=== PATIENT | female | born 1960 | race Caucasian/White ===

== ENCOUNTER → 2022-03-12 | Outpatient (CLI) | payer MEDICARE ==
--- NOTE | 2022-03-12 12:06 | Diagnostic Imaging Report ---
INDICATION: Bilateral knee pain TECHNIQUE: [place], lateral AP and PA views of the bilateral knee CORRELATION STUDY: None FINDINGS: Right knee: There is moderate joint space narrowing of medial joint space lateral compartment. Marginal osteophyte formation is noted. The articular surfaces appear smooth and maintained. There is narrowing at the patellofemoral compartment with prominent osteophyte formation anterior femur as well as superior and inferior pole of patella . Left knee: There is markedly advanced essentially complete absence of joint space medial joint space lateral compartment of the left knee. Essentially [id number] is noted medially. Prominent marginal osteophyte formation is noted laterally. There is a lateral subluxation of the tibial in regards to the distal femur approximately 15 mm. Significant narrowing at the patellofemoral compartment with osteophyte formation distal anterior femur as well as superior and inferior pole of patella. IMPRESSION: 1. Rather markedly advanced tricompartment degenerative changes of both knees left greater than right. Dictated by: Dictated on workstation # [id number]
== END ==
LOC: ORTHO 09:45
PROVIDERS: ATTEND Orthopaedic Surgery
DX: M17.0 Bilateral primary osteoarthritis of knee (principal)
CPT/HCPCS: 20610; 73564; G0463

== ENCOUNTER → 2022-11-05 | Outpatient (CLI) | payer MEDICARE | LOC: ORTHO 15:25 | PROVIDERS: ATTEND Orthopaedic Surgery | DX: M17.0 Bilateral primary osteoarthritis of knee (principal); I10 Essential (primary) hypertension; E03.9 Hypothyroidism, unspecified ==

== ENCOUNTER → 2022-12-17 | Outpatient (CLI) | payer MEDICARE | LOC: ORTHO 14:30 | PROVIDERS: ATTEND Orthopaedic Surgery | DX: M17.0 Bilateral primary osteoarthritis of knee (principal); I10 Essential (primary) hypertension; E03.9 Hypothyroidism, unspecified | CPT/HCPCS: 20610 ==

== ENCOUNTER → 2022-12-31 | Outpatient (CLI) | payer MEDICARE | LOC: ORTHO 15:28 | PROVIDERS: ATTEND Orthopaedic Surgery | DX: M17.0 Bilateral primary osteoarthritis of knee (principal) | CPT/HCPCS: 20610 ==

== ENCOUNTER → 2023-07-08 | Outpatient (CLI) | payer MEDICARE, OTHER | LOC: ORTHO 10:43 | PROVIDERS: ATTEND Orthopaedic Surgery | DX: M17.0 Bilateral primary osteoarthritis of knee (principal) | CPT/HCPCS: 20610; G0463; 99213 ==